=== PATIENT | male | born 1965 | race Caucasian/White ===

== ENCOUNTER → 2019-04-02 | Outpatient (CLI) | payer OTHER, SELFPAY ==
--- NOTE | 2019-04-02 08:05 | RAD_ITS ---
STUDY: X-RAY - ESOPHAGUS (BARIUM SWALLOW) WITH FLUOROSCOPY REASON FOR EXAM: Male, 53 years old. Dysphagia. TECHNIQUE: 14 view(s) of the esophagus were obtained following swallowing of barium. FLUOROSCOPY TIME (if supplied): (0:30) minutes/seconds COMPARISON: None. FINDINGS: There is no demonstrated esophageal foreign body. There is no demonstrated stricture or mucosal abnormality. There is a small hiatal hernia of the fundus of the stomach. The patient ingested a 12 mm tablet of barium. The tablet is trapped at the gastroesophageal junction. Normal visualized aortic arch and descending thoracic aorta. Normal visualized pulmonary parenchyma. Normal visualized osseous structures of the thorax. RAD/Esophagus Only IMPRESSION: Normal plain film x-ray examination (barium swallow) of the esophagus. The ingested 12 mm tablet of barium is trapped at the gastroesophageal junction. Electronically Signed: Domenic Sifuentes, at 12:49 EDT , Service support ,
== END | disposition home or self-care (01) ==
LOC: RAD 07:56
PROVIDERS: Family Provider Family Medicine; PCP Family Medicine; Referring Provider Family Medicine; Visit Provider Family Medicine
DX: R13.10 Dysphagia, unspecified (principal)
CPT/HCPCS: 74220

== ENCOUNTER 2021-04-04 07:53 | Emergency (ER) | payer OTHER, SELFPAY ==
[2021-04-04 07:54] VITALS: BP 107/75; PULSE 113; RESP 22; TEMP 36.6; O2SAT 95; BMI 27.3
[2021-04-04] MEDS: Albuterol 2.5 MG/3 ML VIAL.NEB. INHALATION ×2 (08:19)
[2021-04-04 08:21] VITALS: PULSE 110; RESP 17
--- NOTE | 2021-04-04 08:33 | EDS_ITS ---
HPI HPI - URI History of Present Illness Chief Complaint: Shortness of Breath Detail of Chief Complaint: Onset of respiratory symptoms March 29 Informant: patient Onset/Context/Timing Onset: Days Context: Sudden Onset Timing: Continuous Quality: Upper respiratory symptoms, positive Covid Current Severity: Mild Maximum Severity: Moderate Worsened by: Not Worsened By Swallowing, Eating Solids and Drinking Liquids Associated Symptoms Associated Symptoms: Positive for Nasal Congestion, Headache, Sinus Pressure, Myalgias, Shortness of Breath and Nonproductive cough; Negative for Nausea, Vomiting, Diarrhea, Chest Pain and Hemoptysis Narrative Narrative: Patient is a 55-year-old male with history of asthma who presents with upper respiratory symptoms. He denies loss of taste or smell. is positive for Covid. He complains of headache, rhinorrhea, congestion, sore throat. He does report cough, dyspnea dyspnea on exertion. He has not used inhaler in approximately 1 year. He was treated with albuterol and placed on prednisone. He denies history of smoking. He denies history of PE or DVT. He denies rash. He denies joint swelling. Prior similar symptoms: No Recent Illness/Hospitalization: No ROS ROS ED Constitutional Constitutional ED: Reports fever(s) and subjective; Denies chills or sweats Eyes Eyes: Reports other Details: He denies phobia. ; Denies blurry vision, change in vision or diplopia ENT ENT ED: Reports rhinorrhea and sore throat; Denies ear pain Cardiovascular Cardiovascular: Denies chest pain, orthopnea, palpitations, paroxysmal nocturnal dyspnea or racing heartbeat Respiratory/Chest Respiratory/Chest: Reports cough, dyspnea and dyspnea on exertion; Denies orthopnea, paroxysmal nocturnal dyspnea or sputum Gastrointestinal Gastrointestinal: Denies abdominal pain, diarrhea, nausea or vomiting Genitourinary Genitourinary ED: Denies dysuria, hematuria or urinary frequency Musculoskeletal Musculoskeletal: Denies arthralgias, back pain or myalgias Integumentary Denies rash Neurologic Neurologic: Reports headache(s) and weakness; Denies paresthesias Hematologic/Lymphatic Hematologic/Lymphatic: Denies easy bleeding or easy bruising [facility] Medical History (Updated 04/04/21 @ 10:[address] Dru Lu MD) Asthma Home Medications albuterol sulfate 1 - 2 puff INHALATION Q4H PRN 04/04/21 [History Last Taken Unknown] albuterol sulfate 2.5 mg INHALATION Q4H PRN 04/04/21 [History Last Taken Unknown] hydrocodone-homatropine [Hycodan] 5 ml PO Q6H PRN 3 Days #60 ml 04/04/21 [Rx Last Taken Unknown] Allergy/AdvReac Type Severity Reaction Status Date / Time No Known Allergies Allergy Verified 04/04/21 07:54 no surgical history Social History (Updated 04/04/21 @ 08:[address] Dru Lu MD) household members: spouse housing: house Smoking Status: Never smoker alcohol intake: current alcohol intake frequency: holidays/special occasions only substance use type: does not use EXAM Physical Exam Const Vital Signs: 04/04/21 07:54 04/04/21 08:21 04/04/21 08:48 Temperature 97.8 F 98.0 F Temperature Source Temporal Oral Pulse Rate 113 H 110 H 113 H Respiratory Rate 22 H 17 21 H Respiratory Effort Short of Breath Respiratory Pattern Tachypnea Tachypnea Blood Pressure 107/75 110/71 Blood Pressure Mean 85 84 Pulse Ox 95 95 Oxygen Delivery Method Room Air Room Air Positive well nourished and well developed General Appearance ED: well developed and other Patient is tachypneic with mild respiratory distress walking from triage to his bed. This improved with rest. ; Negative for cyanotic, diaphoretic, NAD or pallor HEENT Reports moist mucous membranes normocephalic and atraumatic External Ear: external ears normal and external ear abnormal Throat: Negative for tonsils abnormal Eyes PERRL and EOMs intact bilaterally General Eye ED: Negative for pale conjunctiva or scleral icterus Neck no lymphadenopathy, supple, no meningeal signs and no JVD Neck Narrative: Trachea is midline. There is no inspiratory stridor. Resp No normal respiratory effort and No clear to auscultation bilaterally Effort and Inspection: Negative for retractions Auscultation: wheezes expiratory wheezes and throughout and diminished lung sounds Cardio S1 normal heart sound, S2 normal heart sound and no murmurs Rate: tachycardic Rhythm: regular rhythm GI non-tender, non-distended and no masses Auscultation: normoactive bowel sounds Palpation: soft Back/Spine no CVA tenderness Cervical Spine: Negative for cervical spine tenderness Thoracic Spine / Upper Back: Negative for thoracic spinal tenderness Lumbar Spine / Lower Back: Negative for lumbar spinal tenderness Extremity normal to inspection and full ROM General Extremety ED: Negative for cyanosis or tenderness General Extremity: Negative for cyanosis Neuro oriented x3 and CN's II-XII intact bilaterally Sensorium / Orientation: alert Psych mental status grossly normal Skin General Skin Exam: Negative for jaundice or pallor Lesions: no lesions Rashes: no rashes MDM MDM MDM Narrative Medical decision making narrative: Patient is in mild respiratory stress. Since he is wheezing we will treat with Solu-Medrol and albuterol aerosol treatments. Covid test was ordered. Chest x-ray was obtained to evaluate for pneumonia. CBC to assess white count and H&H. Need to rule out anemia as a cause of his dyspnea. Renal function was assessed as well. Patient is a candidate for monoclonal therapy. If he meets criteria for discharge will refer him to the monoclonal antibody clinic. It was reassessed at 0911. He is no longer wheezing. He is no longer tachypneic. He is not hypoxic. He has a persistent nonproductive cough. Hycodan was ordered. Patient was informed of his results. Patient was reassessed at 1025. His cough resolved after Hycodan. Plan is discharged with for 2 monoclonal antibody therapy and Hycodan. Lab Data Attestation: I reviewed the patient's lab results. Lab results narrative: Patient is white count is normal. H&H is unremarkable. Comprehensive metabolic panel is unremarkable. Rapid Covid test is positive. Labs: Laboratory Results - last 24 hr 04/04/21 04/04/21 04/04/21 08:40 08:40 08:40 WBC 7.0 RBC 4.84 Hgb 14.2 Hct 42.7 MCV 88.2 MCH 29.3 MCHC 33.3 RDW Std Deviation 42.4 RDW Coeff of Janine 13.0 Plt Count 267 MPV 8.9 Immature Gran % (Auto) 0.400 Neut % (Auto) 76.4 H Lymph % (Auto) 18.3 L [place] % (Auto) 4.9 Eos % (Auto) 0.0 Baso % (Auto) 0.0 Absolute Neuts (auto) 5.3 Absolute Lymphs (auto) 1.28 Nucleated RBC % 0 Sodium 138 Potassium 3.0 L Chloride 100 Carbon Dioxide 29.0 Anion Gap 9 BUN 11 Creatinine 0.80 Estim Creat Clear Calc 90.76 Est GFR (MDRD) Af Amer 129 Est GFR (MDRD) Non-Af 106 BUN/Creatinine Ratio 13.7 Glucose 107 H Lactic Acid 2.7 H* Calcium 8.5 Total Bilirubin 0.50 AST 20 ALT 33 Alkaline Phosphatase 66 Total Protein 7.3 Albumin 3.2 Globulin 4.1 Albumin/Globulin Ratio 0.8 L Radiography Diagnostic Testing: Radiology Impression Chest X-Ray 04/04/21 08:46 IMPRESSION: Diffuse opacifications in the lower lung [place], differential as described. Follow-up recommended to assure resolution Electronically Signed: Isac Veliz MD at 8:59 EDT , Service support , Single view chest x-ray was interpreted by me as bilateral interstitial pneumonia consistent with Covid. Discharge Plan Triage Chief Complaint: Shortness of Breath ED Provider: Dru Lu Dx/Rx/DC Orders Clinical Impression: Pneumonia due to 2019-nCoV, Exacerbation of intermittent asthma, Lactic acidosis Instructions: Coronavirus Disease 2019 (COVID-19): Overview, Coronavirus Disease 2019 (COVID-19): Caring for Yourself or Others Prescriptions: New hydrocodone-homatropine [Hycodan] 5-1.5 mg/5 mL (5 mL) syrup 5 ml PO Q6H PRN (Reason: cough) 3 Days Qty: 60 RF: 0 No Action albuterol sulfate 2.5 mg /3 mL (0.083 %) solution for nebulization 2.5 mg inhalation Q4H PRN (Reason: sob) RF: 0 albuterol sulfate 90 mcg/actuation HFA aerosol inhaler 1 - 2 puff INHALATION Q4H PRN (Reason: sob) RF: 0 Other Ambulatory Orders: COVID Outpatient Monoclonal Antibody Referral (Routine) Timeframe: 1 Day Facility: [facility] - Location: [facility] Ordered By: Dr. Dru Lu Primary Care Provider: Choco Christian Referrals: Choco Christian DO [Primary Care Provider] - 10-14 Days if not better Disposition Disposition: Home, Self Care
--- NOTE | 2021-04-04 08:46 | RAD_ITS ---
STUDY: X-RAY CHEST REASON FOR EXAM: Male, 55 years old. Fever and cough TECHNIQUE: Single AP portable view of the chest. COMPARISON: None. FINDINGS: EKG leads overlie the chest Lungs are expanded with superimposed interstitial and airspace opacifications in the lower lung [place]. Findings suggest pneumonia, perhaps Covid. Findings could also be seen due to pneumonitis. Follow-up recommended to assure resolution Normal size heart. Normal mediastinum and demarcus. Normal visualized pulmonary arteries. Normal visualized aortic arch and descending thoracic aorta. Normal visualized thoracic spine. Normal visualized ribs, clavicles, and shoulders. There is no demonstrated abnormality of the visualized soft tissue structures of the upper abdomen. RAD/Chest 1 View (Portable) IMPRESSION: Diffuse opacifications in the lower lung [place], differential as described. Follow-up recommended to assure resolution Electronically Signed: Isac Veliz MD at 8:59 EDT , Service support ,
[2021-04-04 08:48] VITALS: BP 110/71; PULSE 113; RESP 21; TEMP 36.7; O2SAT 95
[2021-04-04 09:06] LABS: Absolute Lymphocyte Count 1.28 X10^3/uL (0.83-4.51); Absolute Neutrophil Count 5.3 X10^3/uL (2.0-7.7); Hematocrit 42.7 % (40-54); Hemoglobin 14.2 g/dL (13.0-16.5); Lymphocyte # 1.28 X10^3/ul (0.83-4.51); Lymphocyte % 18.3 % (19-41); Mean Corp Hgb Conc 33.3 g/dL (32-36); Mean Corpuscular Hgb 29.3 pg (27.0-32.0); Mean Corpuscular Volume 88.2 fL (80-94); Mean Platelet Vol. 8.9 fl (6.2-12.0); Monocyte# 0.34 X10^3/uL; Monocyte% 4.9 % (0-10); NRBC Flagged by Analyzer 0 % (0-5); Neutrophil # 5.34 X10^3/uL (2.7-7.7); Neutrophil % 76.4 % (47-70); Platelet Count 267 K/mm3 (150-450); RBC Distribution Width SD 42.4 fl (35.1-43.9); Red Blood Count 4.84 M/mm3 (4.6-6.2)
[2021-04-04 09:10] LABS: ALB/GLOB Ratio 0.8 RATIO (0.9-2.4); AST(SGOT) 20 U/L (15-37); Alanine Aminotransfer ALT/SGPT 33 U/L (16-61); Albumin, Serum 3.2 g/dL (3.2-5.0); Alkaline Phosphatase 66 U/L (45-117); Anion Gap 9 (5-15); BUN 11 mg/dL (7-18); BUN/Creat Ratio 13.7 RATIO (10-20); Calcium,Total 8.5 mg/dL (8.5-10.1); Chloride 100 mmol/L (98-107); EST Glomerular Filtration Rate 106 mL/min (>60); Est Glom Filt Rate - Afr Amer 129 mL/min (>60); Estimated Creatinine Clearance 90.76 ml/min; Globulin 4.1 g/dL (2.2-4.2); Glucose 107 mg/dL (74-106); Protein, Total 7.3 g/dL (6.4-8.2); Sodium Level 138 mmol/L (136-145)
[2021-04-04 09:18] LABS: Lactic Acid 2.7 mmol/L (0.4-1.9)
[2021-04-04] MEDS: MethylPREDNISolone 125 MG/2 ML Vial IV (09:27)
[2021-04-04 10:49] VITALS: BP 107/73; PULSE 102; RESP 19; TEMP 36.8; O2SAT 94
[2021-04-04 12:46] LABS: Reflex Lactate? Y
== END 2021-04-04 10:51 | disposition home or self-care (01) ==
PROVIDERS: Emergency Provider Emergency Medicine; PCP Family Medicine
DX: U07.1 COVID-19 (principal); J12.82 Pneumonia due to coronavirus disease 2019; J45.21 Mild intermittent asthma with (acute) exacerbation; E87.2 Acidosis; Z79.51 Long term (current) use of inhaled steroids
CPT/HCPCS: 71045; 80053; 83605; 85025; 87426; 94640; 96374; 99285